=== PATIENT | male | born 1955 | race African-American/Black ===

== ENCOUNTER 2020-08-08 12:45 | Inpatient (IN) | payer MEDICARE, MEDICAID ==
[~2020-08-08] VITALS: Ht 180.3 cm; Wt 77.8 kg
[2020-08-08 13:56] LABS: HEMATOCRIT. 22.7 % (42.0-52.0); HEMOGLOBIN. 7.3 g/dL (14.0-18.0); MEAN CORPUSCULAR HEMOGLOBIN 27.2 pg (28.0-32.0); MEAN CORPUSCULAR VOLUME 84.6 fL (80.0-94.0); MEAN PLATELET VOLUME 6.7 fl (7.4-10.4); PLATELET 480 x1000/uL (130-400); RED BLOOD CELL COUNT 2.68 mill/uL (4.7-6.1); RED CELL DISTRIBUTION WIDTH 15.8 % (11.6-14.6)
[2020-08-08 14:04] LABS: CHLORIDE 99 mEq/L (98-107)
[2020-08-08 14:14] LABS: PLATELET ESTIMATE INCREASED
[2020-08-08] MEDS ORDERED: HALOPERIDOL 5MG TABLET PO ONE (16:00)
[2020-08-08] MEDS ORDERED: MAGNESIUM/ALUMINUM HYDROXIDE/SIMETHICONE 30ML UDC PO PRN (16:45)
[2020-08-08] MEDS ORDERED: NA PHOS,M-B/NA PHOS,DI-BA ENEMA 118ML PR PRN (16:45)
[2020-08-08] MEDS ORDERED: DOCUSATE SODIUM 100MG CAPSULE PO PRN (16:45)
[2020-08-08] MEDS ORDERED: ACETAMINOPHEN 325MG TABLET PO PRN (16:45)
[2020-08-08] MEDS ORDERED: CLONIDINE 0.1MG TABLET PO PRN (16:45)
[2020-08-08] MEDS ORDERED: CEFTRIAXONE 1 G PREMIX 50 ML IV SCH (17:00)
[2020-08-08] MEDS ORDERED: SODIUM CHLORIDE 0.9% 500 ML IV ONE (17:30)
[2020-08-08] MEDS ORDERED: VANCOMYCIN 1250MG in DEXTROSE 5% WATER 250ML IV NR (18:00)
[2020-08-08] MEDS ORDERED: ENOXAPARIN 40MG/0.4ML SYR SUBCUT SCH (18:00)
[2020-08-08 18:07] LABS: CLARITY URINE CLEAR (CLEAR); COLOR URINE YELLOW (YELLOW); KETONES URINE NEGATIVE (NEGATIVE); LEUKOCYTE ESTERASE URINE NEGATIVE (NEGATIVE); NITRITE URINE NEGATIVE (NEGATIVE); OCCULT BLOOD URINE NEGATIVE (NEGATIVE); PROTEIN URINE TRACE (NEGATIVE); SPECIFIC GRAVITY URINE 1.017 (1.005-1.030)
[2020-08-08 18:14] VITALS: BP 93/51
[2020-08-08 19:30] VITALS: BP 95/50
[2020-08-08 20:00] VITALS: BP 95/50
[2020-08-08] MEDS ORDERED: VANCOMYCIN 1,250 MG in DEXT 5% WATER 250 ML IV NR (20:00)
[2020-08-08] MEDS ORDERED: DEXTROSE 50% WATER 50ML SYRINGE IV PRN (20:15)
[2020-08-08] MEDS ORDERED: MORPHINE SULFATE 2 MG/ML CPJ (NOT FOR IM USE) IV PRN (20:45)
[2020-08-08] MEDS: INSULIN LISPRO 100 UNITS/ML SUBCUT SCH (21:00)
[2020-08-08] MEDS: BLOOD SUGAR DIAGNOSTIC STRIP TEST SCH (21:06)
[2020-08-08] MEDS ORDERED: DIVA-18 PO (22:10)
[2020-08-08] MEDS ORDERED: LACT10SO7 PO (22:10)
[2020-08-08] MEDS ORDERED: LISI-186 PO (22:10)
[2020-08-08] MEDS ORDERED: RISP3 PO (22:10)
[2020-08-08] MEDS ORDERED: GLIP5TAB12 PO (22:10)
[2020-08-08] MEDS ORDERED: MULT-1146 PO (22:10)
[2020-08-08] MEDS ORDERED: DOCU250C14 PO (22:10)
[2020-08-09] VITALS: BP 92/46
[2020-08-09] MEDS: BLOOD SUGAR DIAGNOSTIC STRIP TEST SCH ×4 (06:31→20:58)
[2020-08-09 06:55] VITALS: BP 98/55
[2020-08-09 07:14] LABS: HEMATOCRIT. 24.6 % (42.0-52.0); HEMOGLOBIN. 7.8 g/dL (14.0-18.0); MEAN CORPUSCULAR HEMOGLOBIN 26.7 pg (28.0-32.0); MEAN CORPUSCULAR VOLUME 84.6 fL (80.0-94.0); MEAN PLATELET VOLUME 6.9 fl (7.4-10.4); PLATELET 535 x1000/uL (130-400); RED BLOOD CELL COUNT 2.91 mill/uL (4.7-6.1); RED CELL DISTRIBUTION WIDTH 15.7 % (11.6-14.6)
[2020-08-09 07:16] LABS: CHLORIDE 98 mEq/L (98-107)
[2020-08-09 08:00] VITALS: BP 92/45
[2020-08-09] MEDS: INSULIN LISPRO 100 UNITS/ML SUBCUT SCH ×4 (08:17→21:00)
[2020-08-09] MEDS ORDERED: SODIUM CHLORIDE 0.45% 1,000 ML IV SCH (09:45)
[2020-08-09] MEDS ORDERED: DIATR MEGLU/DIATRIZOATE SOLN 30ML PO SCH (09:45)
[2020-08-09] MEDS ORDERED: LORAZEPAM 2MG/ML CPJ IV PRN (09:45)
[2020-08-09] MEDS ORDERED: DEXTROSE 50% WATER 50ML SYRINGE IV PRN (10:15)
[2020-08-09 10:41] LABS: TOTAL IRON BINDING CAPACITY 152 ug/dL (250-450)
[2020-08-09] MEDS: GLIPIZIDE 5MG TABLET PO SCH (10:49)
[2020-08-09] MEDS: DIVALPROEX SODIUM 500MG DR TABLET PO SCH ×2 (10:50→17:04)
[2020-08-09] MEDS: SODIUM CHLORIDE 0.9% 1,000 ML IV SCH (10:50)
[2020-08-09 12:00] VITALS: BP 96/47
[2020-08-09] MEDS ORDERED: SODIUM POLYSTYRENE SULFONATE 15 G/60 ML BOT PO NR (12:00)
[2020-08-09] MEDS: PIPERACILLIN/TAZOBACTAM 3.375 G in DEXT 5% WATER 100 ML IV SCH ×2 (12:09→20:58)
[2020-08-09] MEDS ORDERED: BLOOD SUGAR DIAGNOSTIC STRIP TEST SCH (12:20)
[2020-08-09 13:19] LABS: HEMOGLOBIN 7.5 g/dL (14.0-18.0)
[2020-08-09] MEDS ORDERED: CEFTRIAXONE 1,000 MG in DEXTROSE 5% WATER 50 ML IV SCH ×2 (14:00→17:00)
[2020-08-09 14:07] LABS: FOLIC ACID (FOLATE) SERUM 7.8 ng/mL (>5.38)
[2020-08-09 14:11] LABS: PLATELET ESTIMATE INCREASED
[2020-08-09 16:00] VITALS: BP 97/57
[2020-08-09] MEDS ORDERED: VANCOMYCIN 1 G PREMIX 200 ML IV SCH (17:00)
[2020-08-09] MEDS: DOCUSATE SODIUM 250MG CAPSULE PO SCH (17:04)
[2020-08-09 20:10] VITALS: BP 115/60
[2020-08-09] MEDS: RISPERIDONE 1MG TABLET PO SCH (21:09)
[2020-08-10] VITALS (7 sets, daily range): BP systolic 96–119; BP diastolic 49–82
[2020-08-10] MEDS: SODIUM CHLORIDE 0.9% 1,000 ML IV SCH ×2 (00:11→12:16)
[2020-08-10] MEDS: PIPERACILLIN/TAZOBACTAM 3.375 G in DEXT 5% WATER 100 ML IV SCH ×3 (04:59→22:23)
[2020-08-10] MEDS: LACTULOSE 20G/30ML UDC PO SCH ×3 (06:00→22:23)
[2020-08-10] MEDS: GLIPIZIDE 5MG TABLET PO SCH (07:20)
[2020-08-10] MEDS: BLOOD SUGAR DIAGNOSTIC STRIP TEST SCH ×4 (07:20→21:00)
[2020-08-10] MEDS: INSULIN LISPRO 100 UNITS/ML SUBCUT SCH ×4 (07:49→21:00)
[2020-08-10] MEDS: DIVALPROEX SODIUM 500MG DR TABLET PO SCH ×2 (08:05→16:21)
[2020-08-10] MEDS: DOCUSATE SODIUM 250MG CAPSULE PO SCH ×2 (08:05→16:21)
[2020-08-10] MEDS: RISPERIDONE 1MG TABLET PO SCH ×2 (08:05→22:23)
[2020-08-10 10:56] LABS: HEMATOCRIT. 24.5 % (42.0-52.0); MEAN CORPUSCULAR HEMOGLOBIN 27.3 pg (28.0-32.0); MEAN CORPUSCULAR VOLUME 84.3 fL (80.0-94.0); MEAN PLATELET VOLUME 6.8 fl (7.4-10.4); PLATELET 632 x1000/uL (130-400); RED BLOOD CELL COUNT 2.91 mill/uL (4.7-6.1); RED CELL DISTRIBUTION WIDTH 15.9 % (11.6-14.6)
[2020-08-10 11:07] LABS: CHLORIDE 102 mEq/L (98-107)
[2020-08-10 11:16] LABS: PHOSPHORUS 2.9 mg/dL (2.5-4.9)
[2020-08-10 11:29] LABS: PLATELET ESTIMATE INCREASED
[2020-08-10] MEDS: VANCOMYCIN 1 G PREMIX 200 ML IV SCH (12:58)
[2020-08-10 13:21] LABS: INR 1.2; PARTIAL THROMBOPLASTIN TIME 30.5 sec (23.4-31.0); PROTHROMBIN TIME 12.3 sec (9.6-11.0)
[2020-08-10] MEDS ORDERED: IPRATROPIUM/ALBUTEROL 0.5-3(2.5)MG/3ML NEB HHN PRN (16:00)
[2020-08-10] MEDS: IRON SUCROSE COMPLEX 100 MG/5 ML ML IV SCH (16:18)
[2020-08-10] MEDS: IPRATROPIUM/ALBUTEROL 0.5-3(2.5)MG/3ML NEB HHN SCH (21:18)
[2020-08-11] MEDS: ACETYLCYSTEINE 100MG/ML 10% VIAL 4ML INH SCH ×2 (01:09→10:20)
[2020-08-11] MEDS: IPRATROPIUM/ALBUTEROL 0.5-3(2.5)MG/3ML NEB HHN SCH ×3 (01:09→21:07)
[2020-08-11] MEDS: SODIUM CHLORIDE 0.9% 1,000 ML IV SCH (01:58)
[2020-08-11] MEDS: VANCOMYCIN 1 G PREMIX 200 ML IV SCH ×2 (01:58→12:49)
[2020-08-11 04:47] VITALS: BP 111/64
[2020-08-11] MEDS: PIPERACILLIN/TAZOBACTAM 3.375 G in DEXT 5% WATER 100 ML IV SCH ×3 (05:43→21:46)
[2020-08-11] MEDS: LACTULOSE 20G/30ML UDC PO SCH ×3 (06:00→21:46)
[2020-08-11] MEDS: BLOOD SUGAR DIAGNOSTIC STRIP TEST SCH (06:36)
[2020-08-11] MEDS: INSULIN LISPRO 100 UNITS/ML SUBCUT SCH (07:29)
[2020-08-11 08:12] VITALS: BP 110/59
[2020-08-11] MEDS: RISPERIDONE 1MG TABLET PO SCH ×2 (08:32→21:46)
[2020-08-11] MEDS: GLIPIZIDE 5MG TABLET PO SCH (08:33)
[2020-08-11] MEDS: DIVALPROEX SODIUM 500MG DR TABLET PO SCH ×2 (08:33→17:29)
[2020-08-11] MEDS: DOCUSATE SODIUM 250MG CAPSULE PO SCH ×2 (08:33→17:29)
[2020-08-11] MEDS: PANTOPRAZOLE SODIUM 40 MG/VIAL IV SCH (08:38)
[2020-08-11 09:01] LABS: CHLORIDE 104 mEq/L (98-107)
[2020-08-11 12:14] VITALS: BP 102/67
[2020-08-11] MEDS: IRON SUCROSE COMPLEX 100 MG/5 ML ML IV SCH (15:15)
[2020-08-11 15:56] VITALS: BP 124/73
[2020-08-11 20:39] VITALS: BP 139/70
[2020-08-12] VITALS (8 sets, daily range): BP systolic 74–126; BP diastolic 41–76
[2020-08-12] MEDS: VANCOMYCIN 1 G PREMIX 200 ML IV SCH ×2 (00:41→15:00)
[2020-08-12] MEDS: ACETYLCYSTEINE 100MG/ML 10% VIAL 4ML INH SCH ×3 (01:32→15:00)
[2020-08-12] MEDS: IPRATROPIUM/ALBUTEROL 0.5-3(2.5)MG/3ML NEB HHN SCH ×4 (01:33→20:21)
[2020-08-12] MEDS: PIPERACILLIN/TAZOBACTAM 3.375 G in DEXT 5% WATER 100 ML IV SCH ×3 (03:11→21:40)
[2020-08-12] MEDS: LACTULOSE 20G/30ML UDC PO SCH ×3 (06:00→21:40)
[2020-08-12] MEDS: DOCUSATE SODIUM 250MG CAPSULE PO SCH ×2 (09:00→17:14)
[2020-08-12] MEDS: DIVALPROEX SODIUM 500MG DR TABLET PO SCH ×2 (09:00→16:42)
[2020-08-12] MEDS: RISPERIDONE 1MG TABLET PO SCH ×2 (09:00→21:40)
[2020-08-12] MEDS: PANTOPRAZOLE SODIUM 40 MG/VIAL IV SCH (09:19)
[2020-08-12] MEDS ORDERED: SODIUM CHLORIDE 0.9% 10ML VIAL ONE (10:00)
[2020-08-12 11:34] LABS: CHLORIDE 101 mEq/L (98-107)
[2020-08-12 11:42] LABS: HEMATOCRIT. 26.2 % (42.0-52.0); HEMOGLOBIN. 8.3 g/dL (14.0-18.0); MEAN CORPUSCULAR HEMOGLOBIN 26.6 pg (28.0-32.0); MEAN CORPUSCULAR VOLUME 84.3 fL (80.0-94.0); MEAN PLATELET VOLUME 6.5 fl (7.4-10.4); PLATELET 631 x1000/uL (130-400); RED BLOOD CELL COUNT 3.11 mill/uL (4.7-6.1); RED CELL DISTRIBUTION WIDTH 16.3 % (11.6-14.6)
[2020-08-12] MEDS ORDERED: FENTANYL CITRATE/PF 50MCG/ML 2ML VIAL ONE (13:12)
[2020-08-12] MEDS ORDERED: MIDAZOLAM HCL 5 MG/5 ML VIAL ONE (13:12)
[2020-08-12] MEDS ORDERED: MIDAZOLAM HCL 5 MG/5 ML VIAL IV PRN (13:19)
[2020-08-12] MEDS ORDERED: DIPHENHYDRAMINE 50MG/ML VIAL IV PRN (13:21)
[2020-08-12] MEDS ORDERED: DIPHENHYDRAMINE 50MG/ML VIAL ONE (13:26)
[2020-08-12] MEDS: IRON SUCROSE COMPLEX 100 MG/5 ML ML IV SCH (16:42)
[2020-08-12 20:42] LABS: PLATELET ESTIMATE INCREASED
[2020-08-13] VITALS (28 sets, daily range): BP systolic 72–115; BP diastolic 46–67
[2020-08-13] MEDS: IPRATROPIUM/ALBUTEROL 0.5-3(2.5)MG/3ML NEB HHN SCH ×6 (00:22→20:11)
[2020-08-13] MEDS: ACETYLCYSTEINE 100MG/ML 10% VIAL 4ML INH SCH ×3 (00:24→17:00)
[2020-08-13] MEDS: VANCOMYCIN 1 G PREMIX 200 ML IV SCH (01:57)
[2020-08-13] MEDS: PIPERACILLIN/TAZOBACTAM 3.375 G in DEXT 5% WATER 100 ML IV SCH ×3 (03:37→20:25)
[2020-08-13 05:27] LABS: BG BASE EXCESS -7.9 mmol/L (-2.0-2.0); BG CARBOXYHEMOGLOBIN 0.5 % (0.5-1.5); BG DEOXYHEMOGLOBIN 11.2 % (0.0-5.0); BG FRACTION INSPIRED OXYGEN 50; BG METHEMOGLOBIN 0.4 % (0.0-1.5); BG OXYGEN SATURATION 88.7 % (92.0-98.5); BG OXYHEMOGLOBIN 87.9 % (94.0-97.0); BG PCO2 61.7 mmHg (35.0-45.0); BG PO2 70.8 mmHg (75.0-100.0); BG TOTAL HEMOGLOBIN 9.5 g/dL (12.0-18.0); BG VENT MODE MASK - VENTI
[2020-08-13] MEDS: LACTULOSE 20G/30ML UDC PO SCH ×3 (06:00→21:44)
[2020-08-13 06:56] LABS: HEMATOCRIT. 25.6 % (42.0-52.0); HEMOGLOBIN. 8.1 g/dL (14.0-18.0); MEAN CORPUSCULAR HEMOGLOBIN 27.6 pg (28.0-32.0); MEAN PLATELET VOLUME 6.3 fl (7.4-10.4); PLATELET 661 x1000/uL (130-400); RED BLOOD CELL COUNT 2.95 mill/uL (4.7-6.1); RED CELL DISTRIBUTION WIDTH 16.2 % (11.6-14.6)
[2020-08-13] MEDS: DOCUSATE SODIUM 250MG CAPSULE PO SCH ×2 (09:00→16:02)
[2020-08-13] MEDS ORDERED: SODIUM CHLORIDE 0.9% 500 ML IV ONE (09:15)
[2020-08-13] MEDS ORDERED: NOREPINEPHRINE 32 MG in DEXT 5% WATER 218 ML IV PRN (09:15)
[2020-08-13 09:19] LABS: BG BASE EXCESS -6.7 mmol/L (-2.0-2.0); BG CARBOXYHEMOGLOBIN 0.3 % (0.5-1.5); BG DEOXYHEMOGLOBIN 0.5 % (0.0-5.0); BG FRACTION INSPIRED OXYGEN 100; BG HCO3 ACT 19.8 mmol/L (22.0-26.0); BG METHEMOGLOBIN 0.3 % (0.0-1.5); BG OXYGEN SATURATION 99.5 % (92.0-98.5); BG OXYHEMOGLOBIN 98.9 % (94.0-97.0); BG PCO2 44.3 mmHg (35.0-45.0); BG PH 7.268 (7.350-7.450); BG PO2 230.2 mmHg (75.0-100.0); BG SAMPLE SITE LEFT RADIAL; BG TOTAL HEMOGLOBIN 8.6 g/dL (12.0-18.0); BG VENT MODE MASK - BIPAP
[2020-08-13 09:55] LABS: PLATELET ESTIMATE INCREASED
[2020-08-13] MEDS: BUDESONIDE 0.5MG/2ML NEB HHN SCH ×2 (09:56→20:10)
[2020-08-13] MEDS ORDERED: SODIUM POLYSTYRENE SULFONATE 15 G/60 ML BOT PO NR (10:00)
[2020-08-13] MEDS ORDERED: FUROSEMIDE 40MG/4ML VIAL IVP SCH (10:00)
[2020-08-13] MEDS: PANTOPRAZOLE SODIUM 40 MG/VIAL IV SCH (10:11)
[2020-08-13] MEDS: METHYLPREDNISOLONE SOD SUCC 40 MG/ML VIAL IV SCH ×2 (10:11→17:54)
[2020-08-13] MEDS: DEXT 5%/0.45% NACL 1000ML 1,000 ML IV SCH ×2 (11:57→23:15)
[2020-08-13] MEDS ORDERED: SODIUM BICARBONATE 4% (2.4MEQ) 5ML VIAL IV ONE (12:38)
[2020-08-13] MEDS ORDERED: LIDOCAINE HCL 1% 20ML VIAL (Pyxis) INJ ONE (12:39)
[2020-08-13 12:57] LABS: INR 1.1; PARTIAL THROMBOPLASTIN TIME 31.9 sec (23.4-31.0); PROTHROMBIN TIME 11.4 sec (9.6-11.0)
[2020-08-13 13:06] LABS: CREATINE KINASE 525 IU/L (39-308)
[2020-08-13] MEDS ORDERED: SODIUM POLYSTYRENE SULFONATE 15 G/60 ML BOT PR NR (14:00)
[2020-08-14] VITALS (37 sets, daily range): BP systolic 85–142; BP diastolic 40–95
[2020-08-14] MEDS: ACETYLCYSTEINE 100MG/ML 10% VIAL 4ML INH SCH ×3 (00:26→15:21)
[2020-08-14] MEDS: IPRATROPIUM/ALBUTEROL 0.5-3(2.5)MG/3ML NEB HHN SCH ×6 (00:26→20:30)
[2020-08-14] MEDS: PIPERACILLIN/TAZOBACTAM 3.375 G in DEXT 5% WATER 100 ML IV SCH ×3 (03:51→21:56)
[2020-08-14 05:37] LABS: MEAN CORPUSCULAR HEMOGLOBIN 27.5 pg (28.0-32.0); MEAN CORPUSCULAR VOLUME 86.3 fL (80.0-94.0); MEAN PLATELET VOLUME 6.2 fl (7.4-10.4); PLATELET 570 x1000/uL (130-400); RED BLOOD CELL COUNT 2.89 mill/uL (4.7-6.1); RED CELL DISTRIBUTION WIDTH 16.4 % (11.6-14.6)
[2020-08-14] MEDS: LACTULOSE 20G/30ML UDC PO SCH ×3 (06:26→23:59)
[2020-08-14] MEDS: BUDESONIDE 0.5MG/2ML NEB HHN SCH ×2 (08:54→20:30)
[2020-08-14] MEDS: DOCUSATE SODIUM 250MG CAPSULE PO SCH ×2 (09:00→16:59)
[2020-08-14] MEDS: PANTOPRAZOLE SODIUM 40 MG/VIAL IV SCH (09:51)
[2020-08-14] MEDS: METHYLPREDNISOLONE SOD SUCC 40 MG/ML VIAL IV SCH ×2 (09:51→17:00)
[2020-08-14 10:50] LABS: PLATELET ESTIMATE INCREASED
[2020-08-14 11:16] LABS: BG BASE EXCESS -4.3 mmol/L (-2.0-2.0); BG CARBOXYHEMOGLOBIN 0.3 % (0.5-1.5); BG DEOXYHEMOGLOBIN 8.4 % (0.0-5.0); BG FRACTION INSPIRED OXYGEN 36; BG HCO3 ACT 21.8 mmol/L (22.0-26.0); BG METHEMOGLOBIN 0.5 % (0.0-1.5); BG OXYGEN SATURATION 91.5 % (92.0-98.5); BG OXYHEMOGLOBIN 90.8 % (94.0-97.0); BG PCO2 44.4 mmHg (35.0-45.0); BG PH 7.309 (7.350-7.450); BG PO2 67.1 mmHg (75.0-100.0); BG SAMPLE SITE RIGHT RADIAL; BG TOTAL HEMOGLOBIN 9.3 g/dL (12.0-18.0); BG VENT MODE NASAL CANNULA
[2020-08-14] MEDS: DEXT 5%/0.9% NACL 1,000 ML IV SCH (11:50)
[2020-08-15] VITALS (26 sets, daily range): BP systolic 81–117; BP diastolic 43–67
[2020-08-15] MEDS: ACETYLCYSTEINE 100MG/ML 10% VIAL 4ML INH SCH ×4 (00:22→20:56)
[2020-08-15] MEDS: IPRATROPIUM/ALBUTEROL 0.5-3(2.5)MG/3ML NEB HHN SCH ×6 (00:22→20:53)
[2020-08-15] MEDS: LACTULOSE 20G/30ML UDC PO SCH ×3 (05:52→22:00)
[2020-08-15 06:06] LABS: HEMATOCRIT. 27.3 % (42.0-52.0); HEMOGLOBIN. 8.5 g/dL (14.0-18.0); MEAN CORPUSCULAR HEMOGLOBIN 27.2 pg (28.0-32.0); MEAN CORPUSCULAR VOLUME 87.2 fL (80.0-94.0); MEAN PLATELET VOLUME 6.1 fl (7.4-10.4); PLATELET 639 x1000/uL (130-400); RED BLOOD CELL COUNT 3.13 mill/uL (4.7-6.1); RED CELL DISTRIBUTION WIDTH 16.6 % (11.6-14.6)
[2020-08-15] MEDS: DEXT 5%/0.9% NACL 1,000 ML IV SCH (06:54)
[2020-08-15] MEDS ORDERED: ALBUTEROL (0.5%) 2.5MG/0.5ML NEB HHN SCH (08:00)
[2020-08-15] MEDS: BUDESONIDE 0.5MG/2ML NEB HHN SCH ×2 (08:39→20:53)
[2020-08-15] MEDS ORDERED: SODIUM POLYSTYRENE SULFONATE 15 G/60 ML BOT PO SCH (09:00)
[2020-08-15] MEDS: DOCUSATE SODIUM 250MG CAPSULE PO SCH ×2 (09:00→17:19)
[2020-08-15] MEDS: METHYLPREDNISOLONE SOD SUCC 40 MG/ML VIAL IV SCH ×2 (09:05→17:19)
[2020-08-15] MEDS: PANTOPRAZOLE SODIUM 40 MG/VIAL IV SCH (09:05)
[2020-08-15] MEDS ORDERED: METOCLOPRAMIDE HCL 10MG/2ML VIAL IV NR (09:30)
[2020-08-15 13:00] LABS: NUCLEATED RED BLOOD CELLS 1 /100 WBC; PLATELET ESTIMATE INCREASED
[2020-08-15 19:47] LABS: BG BASE EXCESS -2.9 mmol/L (-2.0-2.0); BG CARBOXYHEMOGLOBIN 0.5 % (0.5-1.5); BG DEOXYHEMOGLOBIN 8.3 % (0.0-5.0); BG FRACTION INSPIRED OXYGEN 100; BG HCO3 ACT 23.9 mmol/L (22.0-26.0); BG METHEMOGLOBIN 0.3 % (0.0-1.5); BG OXYGEN SATURATION 91.6 % (92.0-98.5); BG OXYHEMOGLOBIN 90.9 % (94.0-97.0); BG PCO2 51.7 mmHg (35.0-45.0); BG PH 7.283 (7.350-7.450); BG PO2 69.8 mmHg (75.0-100.0); BG TOTAL HEMOGLOBIN 9.6 g/dL (12.0-18.0); BG VENT MODE MASK - NRB
[2020-08-16] VITALS (69 sets, daily range): BP systolic 62–137; BP diastolic 31–93
[2020-08-16] MEDS: IPRATROPIUM/ALBUTEROL 0.5-3(2.5)MG/3ML NEB HHN SCH ×6 (00:13→20:20)
[2020-08-16] MEDS: DEXT 5%/0.9% NACL 1,000 ML IV SCH (03:24)
[2020-08-16] MEDS: LACTULOSE 20G/30ML UDC PO SCH ×3 (05:50→22:16)
[2020-08-16 06:50] LABS: CHLORIDE 102 mEq/L (98-107)
[2020-08-16 06:57] LABS: HEMATOCRIT. 25.6 % (42.0-52.0); HEMOGLOBIN. 8.1 g/dL (14.0-18.0); MEAN CORPUSCULAR HEMOGLOBIN 27.7 pg (28.0-32.0); MEAN CORPUSCULAR VOLUME 87.5 fL (80.0-94.0); MEAN PLATELET VOLUME 6.1 fl (7.4-10.4); PLATELET 561 x1000/uL (130-400); RED BLOOD CELL COUNT 2.92 mill/uL (4.7-6.1); RED CELL DISTRIBUTION WIDTH 17.2 % (11.6-14.6)
[2020-08-16] MEDS: DOCUSATE SODIUM 250MG CAPSULE PO SCH ×2 (09:00→16:08)
[2020-08-16] MEDS ORDERED: LIDOCAINE HCL 1% 20ML VIAL (Pyxis) INJ ONE (09:35)
[2020-08-16 09:39] LABS: BG BASE EXCESS 1.5 mmol/L (-2.0-2.0); BG CARBOXYHEMOGLOBIN 0.5 % (0.5-1.5); BG DEOXYHEMOGLOBIN 2.4 % (0.0-5.0); BG FRACTION INSPIRED OXYGEN 40; BG HCO3 ACT 26.9 mmol/L (22.0-26.0); BG METHEMOGLOBIN 0.2 % (0.0-1.5); BG OXYGEN SATURATION 97.6 % (92.0-98.5); BG OXYHEMOGLOBIN 96.9 % (94.0-97.0); BG PCO2 46.8 mmHg (35.0-45.0); BG PH 7.378 (7.350-7.450); BG SAMPLE SITE RIGHT RADIAL; BG VENT MODE MASK - BIPAP
[2020-08-16] MEDS: PIPERACILLIN/TAZOBACTAM 2.25 G in DEXTROSE 5% WATER 50 ML IV SCH ×2 (10:31→17:40)
[2020-08-16] MEDS: METHYLPREDNISOLONE SOD SUCC 40 MG/ML VIAL IV SCH ×2 (10:45→17:40)
[2020-08-16] MEDS: PANTOPRAZOLE SODIUM 40 MG/VIAL IV SCH (10:45)
[2020-08-16 12:41] LABS: PLATELET ESTIMATE INCREASED
[2020-08-16] MEDS: ONDANSETRON HCL 4MG/2ML INJ IV PRN (17:55)
[2020-08-17] VITALS (37 sets, daily range): BP systolic 78–153; BP diastolic 41–93
[2020-08-17] MEDS: IPRATROPIUM/ALBUTEROL 0.5-3(2.5)MG/3ML NEB HHN SCH ×6 (00:03→20:34)
[2020-08-17] MEDS: PIPERACILLIN/TAZOBACTAM 2.25 G in DEXTROSE 5% WATER 50 ML IV SCH ×3 (02:53→17:45)
[2020-08-17] MEDS: LACTULOSE 20G/30ML UDC PO SCH ×3 (05:49→22:34)
[2020-08-17 05:55] LABS: HEMATOCRIT. 28.5 % (42.0-52.0); MEAN CORPUSCULAR HEMOGLOBIN 27.8 pg (28.0-32.0); MEAN CORPUSCULAR VOLUME 88.6 fL (80.0-94.0); PLATELET 480 x1000/uL (130-400); RED BLOOD CELL COUNT 3.22 mill/uL (4.7-6.1)
[2020-08-17 06:51] LABS: CHLORIDE 104 mEq/L (98-107)
[2020-08-17 06:58] LABS: PHOSPHORUS 2.3 mg/dL (2.5-4.9)
[2020-08-17] MEDS: ONDANSETRON HCL 4MG/2ML INJ IV PRN (08:07)
[2020-08-17] MEDS: DOCUSATE SODIUM 250MG CAPSULE PO SCH ×2 (08:07→17:00)
[2020-08-17] MEDS: PANTOPRAZOLE SODIUM 40 MG/VIAL IV SCH (08:07)
[2020-08-17] MEDS: METHYLPREDNISOLONE SOD SUCC 40 MG/ML VIAL IV SCH ×2 (08:07→17:45)
[2020-08-17] MEDS ORDERED: SODIUM POLYSTYRENE SULFONATE 15 G/60 ML BOT PO NR (09:00)
[2020-08-17] MEDS ORDERED: SODIUM PHOS,M-BASIC-D-BASIC 20 MM in DEXT 5% WATER 243.3333 ML IV ONE (09:00)
[2020-08-17 11:49] LABS: PLATELET ESTIMATE SLIGHTLY INCREASED
[2020-08-17 19:04] LABS: BG CARBOXYHEMOGLOBIN 0.3 % (0.5-1.5); BG DEOXYHEMOGLOBIN 3.9 % (0.0-5.0); BG FRACTION INSPIRED OXYGEN 100; BG HCO3 ACT 28.9 mmol/L (22.0-26.0); BG METHEMOGLOBIN 0.2 % (0.0-1.5); BG OXYGEN SATURATION 96.1 % (92.0-98.5); BG OXYHEMOGLOBIN 95.6 % (94.0-97.0); BG PCO2 58.4 mmHg (35.0-45.0); BG PH 7.313 (7.350-7.450); BG PO2 90.5 mmHg (75.0-100.0); BG SAMPLE SITE RIGHT RADIAL; BG TOTAL HEMOGLOBIN 9.7 g/dL (12.0-18.0); BG VENT MODE MASK - NRB
[2020-08-17] MEDS ORDERED: ATROPINE SULFATE 1MG/ML VIAL IV PRN (19:15)
[2020-08-18] VITALS (46 sets, daily range): BP systolic 85–139; BP diastolic 36–78
[2020-08-18] MEDS: IPRATROPIUM/ALBUTEROL 0.5-3(2.5)MG/3ML NEB HHN SCH ×6 (00:26→20:42)
[2020-08-18] MEDS: PIPERACILLIN/TAZOBACTAM 2.25 G in DEXTROSE 5% WATER 50 ML IV SCH ×3 (02:08→18:21)
[2020-08-18 05:46] LABS: HEMATOCRIT. 27.9 % (42.0-52.0); HEMOGLOBIN. 8.7 g/dL (14.0-18.0); MEAN CORPUSCULAR HEMOGLOBIN 27.6 pg (28.0-32.0); MEAN PLATELET VOLUME 6.1 fl (7.4-10.4); PLATELET 402 x1000/uL (130-400); RED BLOOD CELL COUNT 3.14 mill/uL (4.7-6.1); RED CELL DISTRIBUTION WIDTH 17.2 % (11.6-14.6)
[2020-08-18 05:57] LABS: CHLORIDE 105 mEq/L (98-107)
[2020-08-18] MEDS: LACTULOSE 20G/30ML UDC PO SCH ×3 (06:28→23:07)
[2020-08-18] MEDS: DOCUSATE SODIUM 250MG CAPSULE PO SCH ×2 (08:33→17:00)
[2020-08-18] MEDS: PANTOPRAZOLE SODIUM 40 MG/VIAL IV SCH (08:36)
[2020-08-18] MEDS: METHYLPREDNISOLONE SOD SUCC 40 MG/ML VIAL IV SCH (08:36)
[2020-08-18 10:34] LABS: PLATELET ESTIMATE NORMAL
[2020-08-18] MEDS: LEVOTHYROXINE SODIUM 50MCG TABLET NG SCH (11:11)
[2020-08-18] MEDS: DEXT 5%/0.45% NACL 1000ML 1,000 ML IV SCH (16:11)
[2020-08-19] VITALS (23 sets, daily range): BP systolic 86–127; BP diastolic 42–74
[2020-08-19] MEDS: IPRATROPIUM/ALBUTEROL 0.5-3(2.5)MG/3ML NEB HHN SCH ×6 (00:27→20:44)
[2020-08-19] MEDS: PIPERACILLIN/TAZOBACTAM 2.25 G in DEXTROSE 5% WATER 50 ML IV SCH ×3 (02:09→20:49)
[2020-08-19] MEDS: LACTULOSE 20G/30ML UDC PO SCH ×3 (06:25→22:40)
[2020-08-19] MEDS: DEXT 5%/0.45% NACL 1000ML 1,000 ML IV SCH ×2 (06:26→18:10)
[2020-08-19] MEDS: DOCUSATE SODIUM 250MG CAPSULE PO SCH ×2 (08:12→18:13)
[2020-08-19] MEDS: METHYLPREDNISOLONE SOD SUCC 40 MG/ML VIAL IV SCH (08:12)
[2020-08-19] MEDS: LEVOTHYROXINE SODIUM 50MCG TABLET NG SCH (08:12)
[2020-08-19] MEDS: PANTOPRAZOLE SODIUM 40 MG/VIAL IV SCH (08:12)
[2020-08-19 11:13] LABS: BG BASE EXCESS 4.3 mmol/L (-2.0-2.0); BG CARBOXYHEMOGLOBIN 0.3 % (0.5-1.5); BG DEOXYHEMOGLOBIN 4.5 % (0.0-5.0); BG FRACTION INSPIRED OXYGEN 36; BG HCO3 ACT 29.9 mmol/L (22.0-26.0); BG METHEMOGLOBIN 0.1 % (0.0-1.5); BG OXYGEN SATURATION 95.5 % (92.0-98.5); BG OXYHEMOGLOBIN 95.1 % (94.0-97.0); BG PCO2 49.9 mmHg (35.0-45.0); BG PH 7.395 (7.350-7.450); BG PO2 79.1 mmHg (75.0-100.0); BG SAMPLE SITE RIGHT BRACHIAL; BG TOTAL HEMOGLOBIN 9.9 g/dL (12.0-18.0); BG VENT MODE NASAL CANNULA
[2020-08-19] MEDS ORDERED: SODIUM POLYSTYRENE SULFONATE 15 G/60 ML BOT PO SCH (14:00)
[2020-08-19 14:55] LABS: HEMATOCRIT. 30.5 % (42.0-52.0); HEMOGLOBIN. 9.2 g/dL (14.0-18.0); MEAN CORPUSCULAR HEMOGLOBIN 26.7 pg (28.0-32.0); MEAN CORPUSCULAR VOLUME 88.5 fL (80.0-94.0); MEAN PLATELET VOLUME 6.1 fl (7.4-10.4); PLATELET 400 x1000/uL (130-400); RED BLOOD CELL COUNT 3.45 mill/uL (4.7-6.1); RED CELL DISTRIBUTION WIDTH 17.5 % (11.6-14.6)
[2020-08-19 14:59] LABS: CHLORIDE 107 mEq/L (98-107)
[2020-08-19 17:07] LABS: PLATELET ESTIMATE NORMAL
[2020-08-19] MEDS: ONDANSETRON HCL 4MG/2ML INJ IV PRN (22:40)
[2020-08-20] VITALS (13 sets, daily range): BP systolic 86–111; BP diastolic 50–66
[2020-08-20] MEDS: IPRATROPIUM/ALBUTEROL 0.5-3(2.5)MG/3ML NEB HHN SCH ×6 (00:11→20:53)
[2020-08-20] MEDS: PIPERACILLIN/TAZOBACTAM 2.25 G in DEXTROSE 5% WATER 50 ML IV SCH ×3 (02:01→17:19)
[2020-08-20 05:52] LABS: CHLORIDE 108 mEq/L (98-107)
[2020-08-20 06:44] LABS: BASOPHILS % 0.3 % (0.0-2.0); EOSINOPHILS % 0.1 % (0.0-5.0); HEMATOCRIT. 26.6 % (42.0-52.0); HEMOGLOBIN. 8.2 g/dL (14.0-18.0); LYMPHOCYTES % 8.1 % (20.0-50.0); MEAN CORPUSCULAR HEMOGLOBIN 27.6 pg (28.0-32.0); MEAN CORPUSCULAR VOLUME 89.4 fL (80.0-94.0); MEAN PLATELET VOLUME 6.6 fl (7.4-10.4); MONOCYTES % 8.2 % (2.0-8.0); NEUTROPHILS % 83.3 % (40.0-76.0); PLATELET 337 x1000/uL (130-400); RED BLOOD CELL COUNT 2.98 mill/uL (4.7-6.1); RED CELL DISTRIBUTION WIDTH 18.3 % (11.6-14.6)
[2020-08-20] MEDS: LACTULOSE 20G/30ML UDC PO SCH ×3 (06:59→21:21)
[2020-08-20] MEDS: LEVOTHYROXINE SODIUM 50MCG TABLET NG SCH (07:01)
[2020-08-20] MEDS ORDERED: SODIUM POLYSTYRENE SULFONATE 15 G/60 ML BOT PO NR (08:30)
[2020-08-20] MEDS: DOCUSATE SODIUM 250MG CAPSULE PO SCH ×2 (08:58→17:00)
[2020-08-20] MEDS: METHYLPREDNISOLONE SOD SUCC 40 MG/ML VIAL IV SCH ×2 (08:58→17:19)
[2020-08-20] MEDS: PANTOPRAZOLE SODIUM 40 MG/VIAL IV SCH (08:58)
[2020-08-20] MEDS: DEXT 5%/0.45% NACL 1000ML 1,000 ML IV SCH ×2 (08:59→21:21)
[2020-08-20 09:53] LABS: BG BASE EXCESS 3.5 mmol/L (-2.0-2.0); BG CARBOXYHEMOGLOBIN 0.1 % (0.5-1.5); BG FRACTION INSPIRED OXYGEN 36; BG HCO3 ACT 36.4 mmol/L (22.0-26.0); BG METHEMOGLOBIN 0.2 % (0.0-1.5); BG OXYGEN SATURATION 65.9 % (92.0-98.5); BG OXYHEMOGLOBIN 65.7 % (94.0-97.0); BG PCO2 132.7 mmHg (35.0-45.0); BG PH 7.056 (7.350-7.450); BG PO2 47.3 mmHg (75.0-100.0); BG SAMPLE SITE RIGHT RADIAL
[2020-08-20] MEDS ORDERED: MORPHINE SULFATE 2 MG/ML CPJ (NOT FOR IM USE) IV NR (10:15)
[2020-08-20 12:10] LABS: BG BASE EXCESS 2.7 mmol/L (-2.0-2.0); BG CARBOXYHEMOGLOBIN 0.2 % (0.5-1.5); BG DEOXYHEMOGLOBIN 5.4 % (0.0-5.0); BG FRACTION INSPIRED OXYGEN 100; BG HCO3 ACT 31.5 mmol/L (22.0-26.0); BG METHEMOGLOBIN 0.3 % (0.0-1.5); BG OXYGEN SATURATION 94.6 % (92.0-98.5); BG OXYHEMOGLOBIN 94.1 % (94.0-97.0); BG PCO2 76.4 mmHg (35.0-45.0); BG PH 7.233 (7.350-7.450); BG PO2 82.2 mmHg (75.0-100.0); BG SAMPLE SITE RIGHT RADIAL; BG TOTAL HEMOGLOBIN 9.5 g/dL (12.0-18.0); BG VENT MODE MASK - BIPAP
[2020-08-21] VITALS (12 sets, daily range): BP systolic 82–105; BP diastolic 50–63
[2020-08-21] MEDS: IPRATROPIUM/ALBUTEROL 0.5-3(2.5)MG/3ML NEB HHN SCH ×3 (00:02→12:16)
[2020-08-21] MEDS: METHYLPREDNISOLONE SOD SUCC 40 MG/ML VIAL IV SCH ×2 (00:03→08:13)
[2020-08-21] MEDS: PIPERACILLIN/TAZOBACTAM 2.25 G in DEXTROSE 5% WATER 50 ML IV SCH (01:12)
[2020-08-21] MEDS: LACTULOSE 20G/30ML UDC PO SCH (06:00)
[2020-08-21 06:26] LABS: HEMATOCRIT. 25.8 % (42.0-52.0); HEMOGLOBIN. 7.9 g/dL (14.0-18.0); MEAN CORPUSCULAR HEMOGLOBIN 27.4 pg (28.0-32.0); MEAN CORPUSCULAR VOLUME 89.6 fL (80.0-94.0); MEAN PLATELET VOLUME 6.8 fl (7.4-10.4); PLATELET 276 x1000/uL (130-400); RED BLOOD CELL COUNT 2.88 mill/uL (4.7-6.1)
[2020-08-21 07:00] LABS: CHLORIDE 107 mEq/L (98-107)
[2020-08-21] MEDS: DOCUSATE SODIUM 250MG CAPSULE PO SCH (08:13)
[2020-08-21] MEDS: PANTOPRAZOLE SODIUM 40 MG/VIAL IV SCH (08:13)
[2020-08-21] MEDS: LEVOTHYROXINE SODIUM 50MCG TABLET NG SCH (08:14)
[2020-08-21 10:14] LABS: PLATELET ESTIMATE NORMAL
[2020-08-21] MEDS: DEXT 5%/0.45% NACL 1000ML 1,000 ML IV SCH (10:25)
[2020-08-21] MEDS ORDERED: ALBUMIN HUMAN 25GM/100ML (25%) IV SCH (10:30)
[2020-08-21] MEDS ORDERED: SODIUM POLYSTYRENE SULFONATE 15 G/60 ML BOT PO SCH (12:00)
[2020-08-21 12:31] LABS: BG BASE EXCESS 5.3 mmol/L (-2.0-2.0); BG CARBOXYHEMOGLOBIN 0.1 % (0.5-1.5); BG DEOXYHEMOGLOBIN 9.8 % (0.0-5.0); BG HCO3 ACT 31.2 mmol/L (22.0-26.0); BG OXYGEN SATURATION 90.2 % (92.0-98.5); BG OXYHEMOGLOBIN 90.1 % (94.0-97.0); BG PCO2 53.4 mmHg (35.0-45.0); BG PH 7.384 (7.350-7.450); BG PO2 59.6 mmHg (75.0-100.0); BG SAMPLE SITE RIGHT RADIAL; BG TOTAL HEMOGLOBIN 8.9 g/dL (12.0-18.0); BG VENT MODE NASAL CANNULA
== END 2020-08-21 23:45 | disposition expired | DRG 720 ==
LOC: ER 13:29 → EDBEDREQ 16:41 → EDBEDREQTM 16:41 → ENRESERV 17:21 → 6WST 18:15 → CVICU 08-13 08:26 → 5EST 08-14 18:05 → CVICU 08-15 19:00 → 5EST 08-19 10:43
PROVIDERS: ADMIT Internal Medicine; ATTEND Internal Medicine
PROC: 4A00X4Z Measurement of Central Nervous Electrical Activity, External Approach (ICD-10-PCS; principal; 2020-08-12)
PROC: 0DB68ZX Excision of Stomach, Via Natural or Artificial Opening Endoscopic, Diagnostic (ICD-10-PCS; 2020-08-12)
PROC: 05HY33Z Insertion of Infusion Device into Upper Vein, Percutaneous Approach (ICD-10-PCS; 2020-08-13)
PROC: B54MZZA Ultrasonography of Right Upper Extremity Veins, Guidance (ICD-10-PCS; 2020-08-13)
PROC: 5A09457 Assistance with Respiratory Ventilation, 24-96 Consecutive Hours, Continuous Positive Airway Pressure (ICD-10-PCS; 2020-08-13)
PROC: 5A09357 Assistance with Respiratory Ventilation, Less than 24 Consecutive Hours, Continuous Positive Airway Pressure (ICD-10-PCS; 2020-08-15)
PROC: 02H633Z Insertion of Infusion Device into Right Atrium, Percutaneous Approach (ICD-10-PCS; 2020-08-16)
PROC: B548ZZA Ultrasonography of Superior Vena Cava, Guidance (ICD-10-PCS; 2020-08-16)
PROC: 5A09357 Assistance with Respiratory Ventilation, Less than 24 Consecutive Hours, Continuous Positive Airway Pressure (ICD-10-PCS; 2020-08-20)
DX: A41.9 Sepsis, unspecified organism (principal); J96.02 Acute respiratory failure with hypercapnia; E11.22 Type 2 diabetes mellitus with diabetic chronic kidney disease; J96.00 Acute respiratory failure, unspecified whether with hypoxia or hypercapnia; N17.9 Acute kidney failure, unspecified; R18.8 Other ascites; F20.9 Schizophrenia, unspecified; K29.50 Unspecified chronic gastritis without bleeding; E87.1 Hypo-osmolality and hyponatremia; F03.90 Unspecified dementia, unspecified severity, without behavioral disturbance, psychotic disturbance, mood disturbance, and anxiety; J44.9 Chronic obstructive pulmonary disease, unspecified; D63.8 Anemia in other chronic diseases classified elsewhere; E87.5 Hyperkalemia; D50.9 Iron deficiency anemia, unspecified; K21.9 Gastro-esophageal reflux disease without esophagitis; K80.20 Calculus of gallbladder without cholecystitis without obstruction; F31.9 Bipolar disorder, unspecified; K22.9 Disease of esophagus, unspecified; R59.0 Localized enlarged lymph nodes; E43 Unspecified severe protein-calorie malnutrition; K56.7 Ileus, unspecified; F10.10 Alcohol abuse, uncomplicated; Y90.9 Presence of alcohol in blood, level not specified; E03.9 Hypothyroidism, unspecified; E83.39 Other disorders of phosphorus metabolism; E87.2 Acidosis; F17.210 Nicotine dependence, cigarettes, uncomplicated; G89.29 Other chronic pain; I25.10 Atherosclerotic heart disease of native coronary artery without angina pectoris; I31.3 Pericardial effusion (noninflammatory); I47.2 Ventricular tachycardia; J18.9 Pneumonia, unspecified organism; C77.2 Secondary and unspecified malignant neoplasm of intra-abdominal lymph nodes; C78.7 Secondary malignant neoplasm of liver and intrahepatic bile duct; C16.9 Malignant neoplasm of stomach, unspecified; I49.3 Ventricular premature depolarization; J91.0 Malignant pleural effusion; J96.01 Acute respiratory failure with hypoxia; I12.9 Hypertensive chronic kidney disease with stage 1 through stage 4 chronic kidney disease, or unspecified chronic kidney disease; N18.9 Chronic kidney disease, unspecified; Z20.828 Contact with and (suspected) exposure to other viral communicable diseases; I46.9 Cardiac arrest, cause unspecified; R13.10 Dysphagia, unspecified; Z51.5 Encounter for palliative care; Z66 Do not resuscitate; Z79.84 Long term (current) use of oral hypoglycemic drugs; Z79.899 Other long term (current) drug therapy; Z86.73 Personal history of transient ischemic attack (TIA), and cerebral infarction without residual deficits; Z68.23 Body mass index [BMI] 23.0-23.9, adult; Z82.49 Family history of ischemic heart disease and other diseases of the circulatory system; G93.40 Encephalopathy, unspecified
CPT/HCPCS: 36415; 36600; 71045; 74018; 74176; 76700; 76937; 80048; 80053; 80076; 80202; 81003; 82140; 82270; 82375; 82378; 82533; 82550; 82607; 82728; 82746; 82805; 82962; 83036; 83540; 83550; 83605; 83735; 83880; 83930; 83935; 84100; 84132; 84145; 84443; 84484; 85014; 85018; 85025; 86301; 86850; 86900; 86920; 87426; 87635; 88104; 88305; 92610; 93005; 93306; 93970; 93971; 94640; 94660; 95816; 97162; 97166; 97530; 99291; C1725; C9113; J0696; J1200; J1630; J1650; J1815; J2250; J2270; J2405; J2543; J2765; J2920; J3010; J3370; J3490; J7030; J7040; J7042; J7060; J7608; J7626; P9047; Q9963